=== PATIENT | male | born 1985 ===

== ENCOUNTER → 2022-11-02 14:56 | Outpatient (CLI) | payer BC, SELFPAY ==
--- NOTE | ~2022-11-02 | XR_ITS ---
XR knee RT min 4V 11/02/2022 15:13 Indication: Right knee pain Procedure: 4 views right knee Comparison: No prior studies for comparison. Findings: No acute fracture, subluxation or dislocation. Small joint effusion. Mild patellofemoral co mpartment osteoarthritis. No foreign bodies. Impression: 1: Mild patellofemoral compartment osteoarthritis. 2: Small joint effusion. Reviewed, dictated and finalized at location B. ER ON Impression: 1: Mild patellofemoral compartment osteoarthritis. 2: Small joint effusion.
== END ==
PROVIDERS: PCP Family Medicine; Visit Provider Physician Assistant
DX: M25.561 Pain in right knee (principal); M17.11 Unilateral primary osteoarthritis, right knee; M25.461 Effusion, right knee
CPT/HCPCS: 73564